=== PATIENT | female | born 1985 | race African-American/Black ===

== ENCOUNTER 2016-08-17 12:21 | Emergency (ER) ==
[2016-08-17] MEDS ORDERED: NS 1,000 ML IV ONE (14:24)
[2016-08-17] MEDS ORDERED: PROTONIX IV ONE (14:25)
[2016-08-17] MEDS ORDERED: REGLAN IV ONE (14:25)
[2016-08-17] MEDS ORDERED: SODIUM CHLORIDE 0.9% INJ ONE (14:25)
--- NOTE | 2016-08-17 14:35 | PROVIDER DOCUMENTATION ---
HPI-Abdominal Pain/GI Problem - General Source: patient - History of Present Illness-ABD Nature of Presenting Problems: Pt is 30 y/o F presents to the ED with N/V/D. Pt states having multiple episodes within the last two months. Pt states this episode started 3 days ago. Pt states no menstrual period in July. Pt states prior visits to the ED. Abdominal Pain Onset Location: reports: generalized abdomen Pain Radiation: reports: no radiation Quality of Pain: reports: aching Severity in ED: reports: mild Onset/Duration: reports: 3 days ago Timing: reports: still present, intermittent Activities at Onset: reports: light activity Exposure to sick contacts?: No Modifying Factors: improves with: nothing Associated Symptoms: reports: diarrhea, nausea, vomiting. denies: anxiety, arm pain, back/neck pain, chest pain, constipation, cough, diaphoresis, dizziness, EENT symptoms, fatigue, fever/chills, genitourinary problems, headaches, heartburn, joint pain, loss of appetite, malaise, muscle aches, sinus congestion /drainage, rash, seizure, shortness of breath, sensory/motor loss, pain with inspiration, swelling/mass in abdomen, syncope, weakness, trouble walking Last BM: unsure Dark Stools Present?: reports: none noticed Rectal Bleeding: reports: none Rectal Pain: reports: none Emesis Description: reports: clear Bruising or Bleeding Gums?: No Similar Symptoms Previously?: Yes Recently seen or treated by another doctor?: Yes <Lexi Franks - Last Filed: 08/17/16 17:53> <Johan Nixon - Last Filed: 08/17/16 17:55> - General Chief Complaint: N/V/D Stated Complaint: N/V/D Time Seen by Provider: 08/17/16 14:09 Allergies/Adverse Reactions: Patient Allergies Allergy/AdvReac Type Severity Reaction Status Date / Time No Known Allergies Allergy Verified 12/14/15 20:19 Home Medications: Home Medication List Medication Instructions Recorded Confirmed Last Taken Type Dicyclomine [Bentyl] 10 mg PO 4XDAY #20 capsule 07/15/16 Unknown Rx Ondansetron [Zofran] 4 mg PO Q6H PRN PRN #20 tablet 07/15/16 Unknown Rx Promethazine [Phenergan] 25 mg PO Q6H PRN PRN #20 tablet 07/15/16 Unknown Rx Metoclopramide [Reglan] 10 mg PO Q6HR PRN #12 08/17/16 Unknown Rx Pantoprazole [Protonix] 40 mg PO DAILY #30 tablet 08/17/16 Unknown Rx Review of Systems - Adult - REVIEW OF SYSTEMS - ADULT Constitutional: denies: chills, fever Eyes: denies: blurred vision, double vision Ears, Nose, Mouth & Throat: denies: ear pain, nose pain, throat pain Cardiovascular: denies: chest pain, heart murmur, irregular heart rate Respiratory: denies: cough, shortness of breath, wheezing Gastrointestinal: reports: abdominal pain, diarrhea, nausea, vomiting Genitourinary: denies: dysuria, hematuria Musculoskeletal: denies: bone pain, joint pain, neck pain Integumentary: denies: hives, itching Neurological: denies: dizziness/vertigo, headache/migraines Psychiatric: reports: no symptoms reported Endocrine: reports: no symptoms reported Hematologic/Lymphatic: reports: no symptoms reported Allergic/Immunologic: reports: no symptoms reported All Other Systems: Reviewed and Negative <Lexi Franks - Last Filed: 08/17/16 17:53> Past History - Adult - PAST MEDICAL HISTORY-ADULT Review of Records: reports: Nursing Assessment Review, Medications Reviewed, Social history reviewed & non-contributory. Major Childhood Illnesses: reports: denies history Cardiovascular: reports: denies history Respiratory: reports: denies history Gastrointestinal: reports: denies history Obstetrical/Gynecological: reports: denies history Genitourinary: reports: denies history Musculoskeletal: reports: denies history Neurological: reports: denies history Endocrine/Immune: reports: denies history Other Conditions: reports: denies history - PRIOR SURGERIES/PROCEDURES Surgical/Procedure History: reports: BTL, orthopedic (extremity) (knee surgery) - PRIOR HOSPITALIZATIONS Prior Hospitalizations: reports: for other non-related - IMMUNIZATION STATUS Childhood Immunizations: See Nurse Assessment Flu Vaccine: See Nurse Assessment - FAMILY HISTORY Family History: reviewed, not pertinent - SOCIAL HISTORY Smoking: denies Substance Use: denies Living Situation: family <Lexi Franks - Last Filed: 08/17/16 17:53> Physical Exam-General - PHYSICAL EXAM-ADULT Initial Vital Signs Reviewed: Yes - CONSTITUTIONAL General Appearance: appears well, alert, no apparent distress - EYES Eyes: PERRL/EOMI, pink conjunctivae, fundi clear, no AV nicking - HEAD, EARS, NOSE, MOUTH & THROAT HENMT: normocephalic/atraumatic, moist mucous membranes, normal ENT inspection, TMs normal, pharynx normal - NECK Neck: non-tender, full range of motion, supple, normal inspection - RESPIRATORY Respiratory: chest non-tender, lungs clear, normal breath sounds, no pleuratic chest pain, no respiratory distress, no accessory muscle use - CARDIOVASCULAR Cardiovascular: normal peripheral pulses, regular rate, rhythm, no edema, no gallop, no JVD, no murmur - GASTROINTESTINAL (ABDOMEN) Abdominal Exam: normal bowel sounds, non tender, soft, no organomegaly, no pulsatile mass - LYMPHATIC Lymphatic: no adenopathy - MUSCULOSKELETAL Back Exam: normal inspection, no CVA tenderness, no vertebral tenderness Extremity: normal range of motion, non-tender, normal gait, normal inspection, no pedal edema, no calf tenderness, normal capillary refill, pelvis stable - SKIN Integumentary: normal color, normal turgor, warm/dry - NEUROLOGIC Neurologic: grossly normal - PSYCHIATRIC Psych/Mental Status: normal mood/affect, oriented x 3 <Lexi Franks - Last Filed: 08/17/16 17:53> Progress - PLAN OF CARE/RESULTS Progress/Plan/Lab Results: Orders Category Date Time Status ED: Urine Bedside ORDERED Care 08/17/16 14:26 Active CBC WITH ELECTRONIC DIFF [HEME] Stat Lab 08/17/16 14:24 Ordered COMPREHENSIVE METABOLIC PANEL [CHEM] Stat Lab 08/17/16 14:25 Ordered PORPHOBILINOGEN RANDOM URINE [[place]] Routine Lab 08/17/16 14:[address] W/POSS RFLX CULT [URINALYSIS] Stat Lab 08/17/16 14:24 Uncollected 0.9% Sodium Chloride Inj [Ns] 1,000 ml Med 08/17/16 14:24 Active IV 999 mls/hr Metoclopramide [Reglan] Med 08/17/16 14:25 Discontinued 10 mg IV NOW ONE Pantoprazole [Protonix] Med 08/17/16 14:25 Discontinued 40 mg IV NOW ONE Sodium Chloride 0.9% Med 08/17/16 14:25 Discontinued 10 ml INJ NOW ONE Vital Signs - 24 hr 08/17/16 12:25 Temperature 98.2 F Pulse Rate 64 Respiratory 18 Rate Blood Pressure 139/88 O2 Sat by Pulse 100 Oximetry Laboratory Tests 08/17/16 08/17/16 08/17/16 14:40 14:40 15:06 WBC 10.13 RBC 4.99 Hgb 13.2 Hct 40.9 MCV 82.0 MCH 26.5 L MCHC 32.3 L RDW Std Deviation 13.6 Plt Count 261 MPV 11.9 H Immature Gran % (Auto) 0.3 Neut % (Auto) 79.6 H Lymph % (Auto) 15.8 L [place] % (Auto) 4.0 Eos % (Auto) 0.1 Baso % (Auto) 0.2 Immature Gran # (Auto) 0.03 Neut # (Auto) 8.06 H Lymph # (Auto) 1.60 [place] # (Auto) 0.41 Eos # (Auto) 0.01 Baso # (Auto) 0.02 Sodium 139 Potassium 3.2 L Chloride 99 Carbon Dioxide 23 L Anion Gap 17 BUN 13 Creatinine 0.9 Estimated GFR/1.73 m2 > 60 BUN/Creatinine Ratio 14 Glucose 105 H Calculated Osmolality 278 Calcium 9.5 Total Bilirubin 0.60 AST 12 ALT 13 Alkaline Phosphatase 65 Total Protein 8.2 Albumin 4.7 Globulin 4.0 Albumin/Globulin Ratio 1.0 Urine Source CLEAN CATCH Urine Color YELLOW Urine Clarity VERY CLOUDY A Urine pH 6.5 Ur Specific [place] 1.020 Urine Protein 1+(30 mg/dL) A Urine Ketones 3+(Large) A Urine Blood 1+ A Urine Nitrite NEGATIVE Urine Bilirubin NEGATIVE Urine Urobilinogen 4+(12 mg/dL) Urine Microscopic RBC <10 Urine WBC 1+ A Urine Microscopic WBC <10 Ur Epithelial Cells >10 A Urine Bacteria 3+ Urine Glucose NEGATIVE - REASSESSMENT Reassessment #1 Time Reassessed: 17:21 (Dr. Nixon at bedside with Pt. ) Status: improving (Dr. Nixon states will give Pt something to drink and see if she can hold it down and if Pt can hold down liquids; Dr. Nixon states he will send Pt home) Reassessment Comment: Pt states feeling better. <Lexi Franks - Last Filed: 08/17/16 17:53> - REASSESSMENT Reassessment #2 Time Reassessed: 17:47 Status: improving Reassessment Comment: stacie po fluids <Johan Nixon - Last Filed: 08/17/16 17:55> Departure <Lexi Franks - Last Filed: 08/17/16 17:53> - Departure Time of Disposition Order: 17:48 Certified Medical Emergency: Emergent <Johan Nixon - Last Filed: 08/17/16 17:55> - Departure DIAGNOSIS: Vomiting and diarrhea Disposition: HOME 01 Condition: Good Additional Instructions: ED Follow Up Instructions: You have been treated by a care provider in the Emergency Department. These instructions are being provided to you so you can have an understanding of how to care for yourself upon discharge. Upon discharge from the Emergency Department, you are responsible for making arrangements for follow-up care by a physician of your choice. Take all prescribed medications as directed. Return to the Emergency Department immediately for any new or worsening symptoms. You may call the Physician Referral phone number at [phone] to obtain a list of Physicians who are taking new patients. Prescriptions: Pantoprazole [Protonix] 40 mg PO DAILY #30 tablet Metoclopramide [Reglan] 10 mg PO Q6HR PRN #12 PRN Reason: Nausea Referrals: Abraham Low MD [Primary Care Provider] - Instructions: Nausea and Vomiting Attestation - Scribe Verification/Attestation Scribe:: Lexi Franks Acting as Scribe for:: Johan Nixon Scribe documention review:: This chart was documented by a scribe and accurately reflects the service the provider performed and the decisions made by the provider. <Lexi Franks - Last Filed: 08/17/16 17:53> Physician Attestation - Physician Attestation I, the provider, attest to the following statement:: Johan Nixon Physician documentation Attestation:: This documentation recorded by the scribe accurately reflects the service I personally performed and the decisions made by me. <Johan Nixon - Last Filed: 08/17/16 17:55>
[2016-08-17 14:48] LABS: MANUAL DIFF NEEDED? NO
[2016-08-17 14:52] LABS: BASO% 0.2 % (0.0-0.8); EOS# 0.01 X1000 (0.0-0.7); EOS% 0.1 % (0.0-10.0); HEMATOCRIT 40.9 % (37.0-47.0); HEMOGLOBIN 13.2 g/dL (12.0-16.0); IMM GRAN# 0.03 X1000 (0.0-0.04); IMM GRAN% 0.3 % (0.0-0.5); LYMPH% 15.8 % (20.5-51.1); MCH 26.5 PG (27-31); MCHC 32.3 g/dL (33-37); MONO# 0.41 X1000 (0.11-0.59); MPV 11.9 FL (7.4-10.4); NEUT% 79.6 % (42.2-75.2); PLT 261 X1000 (130-400); RBC 4.99 XMIL (4.2-5.4)
[2016-08-17 15:04] LABS: AGAP 17; ALBUMIN 4.7 g/dL (3.5-5.0); ALKALINE PHOSPHATASE 65 U/L (32-104); BUN 13 mg/dL (8-22); CALCIUM 9.5 mg/dL (8.8-10.2); CHLORIDE 99 mmol/L (98-107); COSMO 278; GOT 12 U/L (10-30); GPT 13 U/L (10-36); POTASSIUM 3.2 mmol/L (3.5-5.1); SODIUM 139 mmol/L (136-145); TCO2 23 mmol/L (25-35); TOTAL PROTEIN 8.2 g/dL (6.3-8.3)
[2016-08-17 15:24] LABS: URINE SOURCE CLEAN CATCH
[2016-08-17 15:43] LABS: BILIRUBIN URINE NEGATIVE (NEGATIVE); BLOOD URINE 1+ (NEGATIVE); CLARITY VERY CLOUDY (CLEAR); COLOR YELLOW; GLUCOSE URINE NEGATIVE (NEGATIVE); LEUKOCYTES URINE 1+ (NEGATIVE); NITRITE URINE NEGATIVE (NEGATIVE); PH URINE 6.5; PROTEIN URINE 1+(30 mg/dL) mg/dL (NEGATIVE); UROBILINOGEN URINE 4+(12 mg/dL)
[2016-08-17 15:53] LABS: URINE CULTURE PL NEEDED? YES; URINE EPITHELIAL CELLS >10 /HPF (<10); URINE RBC <10 /HPF (<10); URINE WBC <10 /HPF (<10)
[2016-08-17 18:19] VITALS: BP 138/78
== END 2016-08-17 18:19 | disposition home or self-care (01) ==
LOC: P.ED 12:21
DX: R11.2 Nausea with vomiting, unspecified (principal); R19.7 Diarrhea, unspecified; R10.84 Generalized abdominal pain
CPT/HCPCS: 80053; 81001; 84110; 85025; 87088; C9113; J2765; J7030; S0164